=== PATIENT | male | born 1970 | race Hispanic/Latino ===

== ENCOUNTER 2024-12-11 18:56 | Emergency (ER) | payer OTHER, SELFPAY ==
--- NOTE | ~2024-12-11 | XR_ITS ---
EXAMINATION: XR finger 3rd RT min 2V DATE: 12/11/2024 20:08 INDICATION: Right third digit injury TECHNIQUE: Dorsal palmar, lateral and oblique views of the right third digit were obtained COMPARISON: None FINDINGS: Oblique extra articular fracture extending across the proximal metaphyseal region of the right third distal phalanx with 1.5 mm palmar displacement and 20 degrees palmar angulation. There is bandaging material about the distal aspect of the digit suggesting possible aspiration. If there is associated nailbed injury this be considered equivalent of an open/compound fracture at increased risk of infection. Bone alignment is otherwise normal. No other fractures identified. 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 Tiny metallic foreign body in t he soft tissues at the palmar/radial aspect of the third proximal phalanx. IMPRESSION: 1. Mildly displaced and angulated extra articular fracture of the right third distal phalanx. Reviewed, dictated and finalized at location A. IMPRESSION: 1. Mildly displaced and angulated extra articular fracture of the right third d istal phalanx.
[2024-12-11 19:54] VITALS: BP 156/96; PULSE 77; RESP 14; TEMP 36.4; O2SAT 99
--- NOTE | 2024-12-12 02:08 | ED_ITS ---
HPI - Wound/Laceration General Chief Complaint: Wound/Laceration Stated Complaint: Laceration to right middle finger Time Seen by Provider: 12/11/24 23:35 History of Present Illness HPI narrative: Patient is a 54-year-old non-Emirati speaking male who presents to the ER with a laceration to his 3rd right finger. He reports it was smashed in between metal on a bobcat. Patient reports he rinsed the wound out prior to arrival. He reports his Tdap is up-to-date. Patient endorses a history of diabetes and high blood pressure. He reports he takes metformin for his diabetes. Patient denies any decreased range of motion in his right hand below his middle finger DIP joint, purulence drainage, or recent fevers. Related Data Allergies Allergy/AdvReac Type Severity Reaction Status Date / Time No Known Allergies Allergy Verified 12/11/24 19:53 Review of Systems Review of Systems: All systems reviewed & are unremarkable except as noted in HPI and below Exam Narrative: GENERAL: Well appearing, well-nourished, non-toxic, in no acute distress. HEAD: Normocephalic, atraumatic. NECK: Supple. No adenopathy, no masses. RESPIRATORY: Airway patent, respirations nonlabored. Clear to auscultation bilaterally, no rales, rhonchi, wheezing. CARDIOVASCULAR: Regular rate and rhythm without murmurs, rubs, or gallops. Peripheral pulses 2+ and equal bilaterally. ABDOMINAL: Soft, nontender, nondistended, no hepatosplenomegaly. Normoactive BS. MUSCULOSKELETAL: Moves all extremities. Strength/ROM intact without gross deformities. SKIN: Warm, dry, normal color. No rashes. Approximately 1 cm linear laceration to right 3rd digit proximal to DIP joint, bleeding controlled NEURO: A&O X3. Speech clear. Cranial nerves II-XII intact. No ataxic movements. PSYCHIATRIC: Appropriate mood and affect. Normal interaction. Course Vital Signs Vital signs: Vital Signs Temperature 36.4 C L 12/11/24 19:54 Pulse Rate 77 12/11/24 19:54 Respiratory Rate 14 12/11/24 19:54 Blood Pressure 156/96 H 12/11/24 19:54 Pulse Oximetry 99 12/11/24 19:54 Oxygen Delivery Room Air 12/11/24 19:54 Temperature 36.4 C L 12/11/24 19:54 Pulse Rate 77 10/09/25 19:54 Respiratory Rate 14 12/11/24 19:54 Blood Pressure 156/96 H 12/11/24 19:54 Pulse Oximetry 99 12/11/24 19:54 Oxygen Delivery Room Air 12/11/24 19:54 Procedures Laceration Laceration 1: Date: 12/12/24 Time: 03:03 Site: hand Side (If applicable): right Size (cm): 1 Description: linear, flap and clean Depth: involves muscle layer Local Anesthetic: lidocaine 1% and with epi Amount of anesthesia used (mL): 8 Pre-repair: wound explored and irrigated extensively ====== Skin Level ====== Skin layer closed with: nylon Size (cm): 3-0 and 4-0 Number of sutures: 3 Technique: simple, interrupted ====== Subcutaneous Layer ====== ====== Muscle Layer ====== ====== Tendon Layer ====== MDM - Wound/Laceration MDM Narrative Medical decision making narrative: Patient is a 54-year-old non-Emirati speaking male who presents to the ER with a laceration to his 3rd right finger. He reports it was smashed in between metal on a bobcat. Patient reports he rinsed the wound out prior to arrival. He reports his Tdap is up-to-date. Patient endorses a history of diabetes and high blood pressure. He reports he takes metformin for his diabetes. Patient denies any decreased range of motion in his right hand below his middle finger DIP joint, purulence drainage, or recent fevers. Labs Ordered: None necessary Imaging Ordered: Right hand x-ray Medications Ordered: Lidocaine infiltrate, Melvin p.o. Results: Patient's x-ray indicates Oblique extra articular fracture extending across the proximal metaphyseal region of the right third distal phalanx with 1.5 mm palmar displacement and 20 degrees palmar angulation. There is bandaging material about the distal aspect of the digit suggesting possible aspiration. If there is associated nailbed injury this be considered equivalent of an o pen/compound fracture at increased risk of infection. Bone alignment is otherwise normal. No other fractures identified. 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 Tiny metallic foreign body in the soft tissues at the palmar/radial aspect of the third proximal phalanx. Diagnosis: open fracture R middle finger Consults: 0100- Spoke with hand specialist, Dr. Vences, who reports patient's laceration can be sutured. He advised patient be started on oral antibiotics here in the ER. Dr. Vences would like patient to have a splint placed on his finger. He reports he will follow-up with patient upon discharge. Patient's tetanus status up-to-date. No active bleeding upon my evaluation. Lidocaine was used with adequate anesthesia. Laceration was repaired with 3 loose sutures. Difficulty with anchoring sutures, as skin is tearing when sutures placed in distal portion of finger. Portion of laceration was not appr oximated and therefore, unable to be sutured. Patient Education/Shared MDM: Results of imaging shared with patient. He endorses improvement of symptoms following medication administration. Patient strongly advised to follow-up with a hand specialist as soon as possible. He will be discharged home with a prescription for Keflex and Melvin. Strict return precautions provided. Patient verbalized understanding and is in agreement with plan. Vital signs stable at time of discharge. All questions answered. Differential Diagnosis Differential diagnosis: Likely laceration, abrasion and avulsion of skin Imaging Data Attestation: I personally reviewed and interpreted this imaging study as follows: Radiologist's impression: Impressions Finger X-Ray 12/11/24 20:28 IMPRESSION: 1. Mildly displaced and angulated extra articular fracture of the right third distal phalanx. Discharge Plan Discharge Clinical Impression: Laceration, Phalanx, distal fracture of finger, Open fracture Patient Disposition: Home Condition: Stable Instructions: Antibiotic Form, Care For Your Stitches (ED), Finger Fracture (ED) Additional Instructions: Please return to the ER with any worsening symptoms. Follow-up with the hand specialist, Dr. Vences, as soon as possible. Take all medications as pre scribed, including regularly scheduled medications. Complete your full dose of antibiotics. Patient Language: Georgian Prescriptions: New cephalexin 500 mg capsule 500 mg PO Q8H 10 Days Qty: 30 0RF hydrocodone-acetaminophen 5-325 mg tablet 1 tablet PO Q6H PRN (Reason: pain) Qty: 14 0RF Follow-up/Referrals: Juana Vences MD [Physician, Plastic Surgery] Referral Note: hand specialist PHYSICIAN,INFORMATION AND DATA ARCHITECT ANALYST [Primary Care Provider, Internal Medicine] Stand Alone Forms: Work/School Release IP Time of Disposition: 03:11
[2024-12-12] MEDS: CEPHALEXIN 500 MG CAPSULE PO (02:56)
[2024-12-12] MEDS: HYDROcodone/acetaminophen (*CRX) 5-325 MG TABLET 1 TAB PO (02:56)
[2024-12-12 03:30] VITALS: BP 149/91; PULSE 80; RESP 16; TEMP 36.5; O2SAT 100
[2024-12-12 03:32] VITALS: BP 149/91; PULSE 80; RESP 16; TEMP 36.5; O2SAT 100
== END 2024-12-12 03:36 | disposition home or self-care (01) ==
PROVIDERS: Emergency Provider Registered Nurse
DX: S62.632B Displaced fracture of distal phalanx of right middle finger, initial encounter for open fracture (principal); W31.89XA Contact with other specified machinery, initial encounter
CPT/HCPCS: 12001; 29130; 73140; 99284; A9270